=== PATIENT | female | born 1985 | race Caucasian/White ===

== ENCOUNTER 2018-06-22 17:21 | Emergency (ER) | payer BC, SELFPAY ==
[2018-06-22 17:35] VITALS: BP 116/76; PULSE 91; RESP 16; TEMP 37; O2SAT 100; BMI 21.1
--- NOTE | 2018-06-22 17:53 | ED.NAVMDI ---
HPI - Nausea/Vomiting/Diarrhea <VIKRAM Mcghee - Last Filed: 06/22/18 22:16> General Chief complaint: Nausea/Vomiting/Diarrhea Stated complaint: 7 WKS , DIZZY, THROWING UP Time Seen by Provider: 06/22/18 17:52 Source: patient Mode of arrival: ambulatory Limitations: no limitations History of Present Illness HPI Narrative: 32-year-old female here for complaint of having nausea vomiting that started earlier today. She states she had this a couple weeks ago during this as well and was treated with anti nausea medications and resolved. She denies any fevers or chills. She states she has some generalized cramping in the abdomen area but no pain at this time. She denies having any urinary symptoms no flank pain. No vaginal discharge or bleeding. Related Data Previous Rx's Medication Instructions Recorded ondansetron 4 mg PO Q6-8H PRN #12 tab 06/22/18 Review of Systems <VIKRAM Mcghee - Last Filed: 06/22/18 22:16> Constitutional Denies chills, Denies fever(s), Denies lethargy and Denies weakness Eyes Denies change in vision, Denies eye discharge, Denies irritation and Denies loss of vision ENT Ears, Nose, Mouth, and Throat: Denies change in voice, Denies neck pain and Denies sore throat Cardiovascular Denies chest pain, Denies irregular heart rhythm, Denies lightheadedness, Denies palpitations, Denies dyspnea, Denies dyspnea on exertion and Denies orthopnea Respiratory Denies cough, Denies dyspnea, Denies dyspnea on exertion and Denies wheezing Gastrointestinal Gastrointestinal: Denies abdominal pain, Denies change in bowel habits, Denies diarrhea, Reports nausea and Reports vomiting Genitourinary Denies hematuria, Denies flank pain, Denies urinary incontinence and Denies urinary urgency Musculoskeletal Denies neck pain Integumentary/Breasts Denies pruritus, Denies erythema, Denies rash and Denies wounds Neurologic Denies confusion, Denies loss of vision and Denies weakness Psychiatric Denies anxiety, Denies confusion, Denies depression, Denies homicidal ideation and Denies suicidal ideation Endocrine Denies palpitations Hematologic/Lymphatic Denies easy bruising Allergic/Immunologic Denies wheezing Exam <VIKRAM Mcghee - Last Filed: 06/22/18 22:16> Initial Vital Signs Initial Vital Signs: Vital Signs Temperature 98.6 F 06/22/18 17:35 Pulse Rate 91 H 06/22/18 17:35 Respiratory Rate 16 06/22/18 17:35 Blood Pressure 116/76 06/22/18 17:35 Pulse Oximetry 100 06/22/18 17:35 Const General: cooperative and well developed Nutritional Appearance: well nourished Orientation: alert, awake, oriented x3 and not confused [facility] Mouth: oral mucosae normal and moist mucous membranes Eyes Conjunctivae: conjunctivae normal Sclera: sclerae normal Pupils: PERRL EOM: EOM intact bilaterally Resp Effort & Inspection: normal respiratory effort, able to speak in complete sentences, no respiratory distress and no use of accessory muscles Auscultation: clear to auscultation bilaterally, no rales, no rhonchi and no wheezes Cardio Rate: regular rate Rhythm: regular rhythm Heart Sounds: no click, no gallops, no murmurs and no rubs GI Inspection: non-distended Palpation: soft, no hepatosplenomegaly, No guarding, No pulsatile mass and No tender Auscultation: normal bowel sounds General: No CVA tenderness Skin General: no rashes or lesions noted, No jaundice and No petechiae Neuro General: alert, oriented x3, gait normal and no focal motor deficits Speech: speech normal <Anita Julien DO - Last Filed: 06/23/18 05:01> Initial Vital Signs Initial Vital Signs: Vital Signs Temperature 98.6 F 06/22/18 17:35 Pulse Rate 91 H 06/22/18 17:35 Respiratory Rate 16 06/22/18 17:35 Blood Pressure 116/76 06/22/18 17:35 Pulse Oximetry 100 06/22/18 17:35 Course <VIKRAM Mcghee - Last Filed: 06/22/18 22:16> Orders Ordered: Discontinued Medications Sodium Chloride (Normal Saline 0.9%) 1,000 mls @ 1,000 mls/hr IV BOLUS ONE Stop: 06/22/18 19:23 Last Infusion: 06/22/18 20:05 Dose: 0 mls/hr Admin: 06/22/18 18:25 Dose: 1,000 mls/hr Ondansetron HCl (Zofran) 4 mg IV NOW ONE Stop: 06/22/18 18:25 Last Admin: 06/22/18 18:25 Dose: 4 mg Ondansetron HCl (Zofran Odt Prepack) 1 bottle MISC SEEINSTR ONE Stop: 06/22/18 20:43 Last Admin: 06/22/18 21:07 Dose: 1 bottle Vital Signs - 8 hr 06/22/18 17:35 06/22/18 19:20 06/22/18 20:48 Temperature 98.6 F 97.0 F L 97.6 F Pulse Rate 91 H 76 74 Respiratory Rate 16 16 16 Blood Pressure 116/76 Blood Pressure [Left Arm] 101/64 97/56 L Pulse Oximetry 100 100 99 <Anita Julien DO - Last Filed: 06/23/18 05:01> Orders Ordered: Discontinued Medications Sodium Chloride (Normal Saline 0.9%) 1,000 mls @ 1,000 mls/hr IV BOLUS ONE Stop: 06/22/18 19:23 Last Infusion: 06/22/18 20:05 Dose: 0 mls/hr Admin: 06/22/18 18:25 Dose: 1,000 mls/hr Ondansetron HCl (Zofran) 4 mg IV NOW ONE Stop: 06/22/18 18:25 Last Admin: 06/22/18 18:25 Dose: 4 mg Ondansetron HCl (Zofran Odt Prepack) 1 bottle MISC SEEINSTR ONE Stop: 06/22/18 20:43 Last Admin: 06/22/18 21:07 Dose: 1 bottle Vital Signs - 8 hr 06/22/18 17:35 06/22/18 19:20 06/22/18 20:48 Temperature 98.6 F 97.0 F L 97.6 F Pulse Rate 91 H 76 74 Respiratory Rate 16 16 16 Blood Pressure 116/76 Blood Pressure [Left Arm] 101/64 97/56 L Pulse Oximetry 100 100 99 MDM - Nausea/Vomiting/Diarrhea <VIKRAM Mcghee - Last Filed: 06/22/18 22:16> Lab Data Result diagrams: 06/22/18 18:15 06/22/18 18:15 Lab Results 06/22/18 06/22/18 Range/Units 18:15 18:15 WBC 7.8 (4.5-11.0) X10^3/uL RBC 4.61 (4.0-5.2) X10^6/uL Hgb 14.4 (12.0-16.0) g/dL Hct 42.2 (36-46) % MCV 91.6 (80-100) fL MCH 31.2 (26-34) PG MCHC 34.1 (30-36) % RDW 13.4 (11.6-14.8) % Plt Count 223 (150-400) X10^3/uL Neut % (Auto) 86.1 H (50-75) % Lymph % (Auto) 8.5 L (25-40) % [place] % (Auto) 5.0 (3-14) % Eos % (Auto) 0.1 L (2-4) % Baso % (Auto) 0.3 (0-2) % Neut # (Auto) 6700 H (4434-1923) /uL Sodium 137 (137-145) mmol/L Potassium 4.0 (3.4-5.1) mmol/L Chloride 102 (98-107) mmol/L Carbon Dioxide 24 (22-32) mmol/L BUN 12 (7-17) mg/dL Creatinine 0.60 (0.52-1.04) mg/dL Estimated GFR > 60.0 (>60) mL/min BUN/Creatinine Ratio 20.0 (6-22) Glucose 128 H (70-100) mg/dL Calcium 9.4 (8.4-10.2) mg/dL Total Bilirubin 0.8 (0.2-1.3) mg/dL AST 40 H (14-36) IU/L ALT 25 (9-52) IU/L Alkaline Phosphatase 39 (38-126) U/L Total Protein 7.7 (6.3-8.2) g/dL Albumin 4.6 (3.5-5.0) g/dL Globulin 3.1 (1.7-4.1) g/dL Albumin/Globulin Ratio 1.5 (1.0-2.8) MDM Narrative Medical decision making narrative: On exam patient with no abdominal discomfort. Her nausea and vomiting symptoms were much better after the Zofran here in the emergency room. She was given a L of normal saline for hydration. Urinalysis was obtained and was negative for UTI. CBC and Chem panel were obtained were unremarkable. Signs and symptoms presents as nausea vomiting secondary to with differential of viral illness. She is prescribed Zofran for nausea vomiting at home up plenty of fluids. Slowly advance diet as tolerated. Follow up with OB in the next few days for re-evaluation. Use [id number] Tylenol as needed for any discomfort for any worsening symptoms return to the emergency room. <Anita Julien, DO - Last Filed: 06/23/18 05:01> Lab Data Lab Results 06/22/18 06/22/18 Range/Units 18:15 18:15 WBC 7.8 (4.5-11.0) X10^3/uL RBC 4.61 (4.0-5.2) X10^6/uL Hgb 14.4 (12.0-16.0) g/dL Hct 42.2 (36-46) % MCV 91.6 (80-100) fL MCH 31.2 (26-34) PG MCHC 34.1 (30-36) % RDW 13.4 (11.6-14.8) % Plt Count 223 (150-400) X10^3/uL Neut % (Auto) 86.1 H (50-75) % Lymph % (Auto) 8.5 L (25-40) % [place] % (Auto) 5.0 (3-14) % Eos % (Auto) 0.1 L (2-4) % Baso % (Auto) 0.3 (0-2) % Neut # (Auto) 6700 H (6552-8460) /uL Sodium 137 (137-145) mmol/L Potassium 4.0 (3.4-5.1) mmol/L Chloride 102 (98-107) mmol/L Carbon Dioxide 24 (22-32) mmol/L BUN 12 (7-17) mg/dL Creatinine 0.60 (0.52-1.04) mg/dL Estimated GFR > 60.0 (>60) mL/min BUN/Creatinine Ratio 20.0 (6-22) Glucose 128 H (70-100) mg/dL Calcium 9.4 (8.4-10.2) mg/dL Total Bilirubin 0.8 (0.2-1.3) mg/dL AST 40 H (14-36) IU/L ALT 25 (9-52) IU/L Alkaline Phosphatase 39 (38-126) U/L Total Protein 7.7 (6.3-8.2) g/dL Albumin 4.6 (3.5-5.0) g/dL Globulin 3.1 (1.7-4.1) g/dL Albumin/Globulin Ratio 1.5 (1.0-2.8) Discharge Plan Departure Patient Disposition: Home, Self-Care Clinical Impression: Nausea & vomiting Discharge Date/Time: 06/22/18 21:20 Interventions: ED Discharge Assessment Last Done: 06/22/18 21:12 Instructions: Support (Alternative Therapy) Activity Restrictions/Additional Instructions: Signs and symptoms presents as a nausea vomiting secondary to the . Laboratory results today were unremarkable. Use Zofran as prescribed for nausea as directed. Plenty of fluids. Slowly advance diet as tolerated. Follow up with her OB in the next couple of days for re-evaluation. May use Tylenol as needed for any discomfort. For any worsening symptoms return to the emergency room. Prescriptions: New ondansetron 4 mg tablet,disintegrating 4 mg PO Q6-8H PRN (Reason: nausea and vomiting) Qty: 12 RF: 0 Referrals: [facility] [Provider Group] <Anita Julien DO - Last Filed: 06/23/18 05:01> Cosign ED Attending Marcyature Attestation: I was immediately available in the department for consultation. Documentation has been reviewed. I agree with assessment and plan.
[2018-06-22] MEDS: SODIUM CHLORIDE 0.9% 1,000 ML 1000 ML IV (18:25)
[2018-06-22] MEDS: ONDANSETRON 4 MG/2 ML INJ IV (18:25)
[2018-06-22 19:20] VITALS: BP 101/64; PULSE 76; RESP 16; TEMP 36.1; O2SAT 100
[2018-06-22 19:47] LABS: Add Manual Diff / Slide Review NO; Basophils Percent Auto 0.3 % (0-2); Eosinophils Percent Auto 0.1 % (2-4); Hematocrit 42.2 % (36-46); Hemoglobin 14.4 g/dL (12.0-16.0); Lymphocytes Percent Auto 8.5 % (25-40); Mean Corpuscular HGB Conc 34.1 % (30-36); Mean Corpuscular Hemoglobin 31.2 PG (26-34); Mean Corpuscular Volume 91.6 fL (80-100); Neutrophils Absolute Auto 6700 /uL (3000-5900); Neutrophils Percent Auto 86.1 % (50-75); Platelet Count 223 X10^3/uL (150-400); Red Blood Cell Count 4.61 X10^6/uL (4.0-5.2); Red Cell Distribution Width 13.4 % (11.6-14.8); White Blood Cell Count 7.8 X10^3/uL (4.5-11.0)
[2018-06-22 19:52] LABS: Alanine Aminotransferase 25 IU/L (9-52); Albumin 4.6 g/dL (3.5-5.0); Albumin Globulin Ratio 1.5 (1.0-2.8); Alkaline Phosphatase 39 U/L (38-126); Aspartate Aminotransferase 40 IU/L (14-36); Bilirubin Total 0.8 mg/dL (0.2-1.3); Blood Urea Nitrogen 12 mg/dL (7-17); Calcium 9.4 mg/dL (8.4-10.2); Carbon Dioxide 24 mmol/L (22-32); Chloride 102 mmol/L (98-107); Estimated Glomerular Filt Rate > 60.0 mL/min (>60); Globulin 3.1 g/dL (1.7-4.1); Glucose 128 mg/dL (70-100); HEMOLYSIS 15 (0-50); Sodium 137 mmol/L (137-145); Total Protein 7.7 g/dL (6.3-8.2)
[2018-06-22 20:48] VITALS: BP 97/56; PULSE 74; RESP 16; TEMP 36.4; O2SAT 99
[2018-06-22] MEDS: ONDANSETRON 4 MG ODT PREPACK 1 BOTTLE MISC (21:07)
== END 2018-06-22 21:20 | disposition home or self-care (01) ==
PROVIDERS: Emergency Provider Nurse Practitioner Family
DX: O21.9 Vomiting of pregnancy, unspecified (principal); Z3A.01 Less than 8 weeks gestation of pregnancy
CPT/HCPCS: 36591; 80053; 81003; 81025; 85025; 96361; 96374; 99283; J2405